=== PATIENT | female | born 1945 | race Caucasian/White ===

== ENCOUNTER 2017-11-01 03:18 | Emergency (ER) | payer OTHER, MEDICARE ==
[2017-11-01] MEDS ORDERED: TRAMADOL HCL 50 MG TABLET PO ONE (03:57)
--- NOTE | 2017-11-01 04:03 | ER Document Report ---
HPI - HPI Pain Level: 3 Notes: Patient is a 72-year-old female with no significant past medical history who presents to the ED complaining of right anterior leg pain from her hip to her knee 1-1/2 days. Patient states that she walks every day, and believes that she may have pulled a muscle a few days ago, but the pain worsened over the last day and a half. Patient states that weightbearing and activation of her quadricep muscles worsen her pain. Patient has not noticed any bruising, redness, or swelling. Patient states that she took Tylenol without any relief of her symptoms. Patient does have associated nausea with the increase in her pain. patient is accompanied by her daughter and her grandson. In her 72 years of living, patient states that this is her first ER visit. Patient states that she has otherwise been healthy and had blood work performed by her primary care provider about a week ago which was unremarkable. Patient states that she has been feeling well aside from her leg. She is eating and drinking without any difficulties. She is urinating normally and having normal bowel movements. Denies any headache, fever, neck pain, URI, sore throat, chest pain , palpitations, syncope, cough, shortness of breath, wheeze, dyspnea, abdominal pain, nausea/vomiting/diarrhea, urinary retention, dysuria, hematuria, back pain , loss of control of bowel or bladder, numbness/tingling, saddle anesthesia, muscle paralysis/weakness, or rash. - ROS Notes: REVIEW OF SYSTEMS: CONSTITUTIONAL : Denies fever, chills, or sweats. Denies recent illness. EENT: Denies eye, ear, throat, or mouth pain or symptoms. Denies nasal or sinus congestion or discharge. Denies throat, tongue, or mouth swelling or difficulty swallowing. CARDIOVASCULAR: Denies chest pain. Denies palpitations or racing or irregular heart beat. Denies ankle edema. RESPIRATORY: Denies cough, cold, or chest congestion. Denies shortness of breath, difficulty breathing, or wheezing. GASTROINTESTINAL: Denies abdominal pain or distention. Denies nausea, vomiting , or diarrhea. Denies blood in vomitus, stools, or per rectum. Denies black, tarry stools. Denies constipation. GENITOURINARY: Denies difficulty urinating, painful urination, burning, frequency, blood in urine, or discharge. MUSCULOSKELETAL: see hpi SKIN: Denies rash, lesions or sores. NEUROLOGICAL: Denies confusion or altered mental status. Denies passing out or loss of consciousness. Denies dizziness or lightheadedness. Denies headache. Denies weakness or paralysis or loss of use of either side. Denies problems with gait or speech. Denies sensory loss, numbness, or tingling. Denies seizures. ALL OTHER SYSTEMS REVIEWED AND NEGATIVE. Dictation was performed using [employer] voice recognition software <ROSA GARCIA - Last Filed: 11/01/17 07:02> Past Medical History - Social History Smoking Status: Never Smoker Chew tobacco use (# tins/day): No Frequency of alcohol use: None Drug Abuse: None Family History: Reviewed & Not Pertinent Patient has suicidal ideation: No Patient has homicidal ideation: No Renal/ Medical History: Denies: Hx Peritoneal Dialysis Skin Medical History: Comment Only Hx MRSA - MRSA 02/25/08 NASAL <ROSA GARCIA - Last Filed: 11/01/17 07:02> Vertical Provider Document - CONSTITUTIONAL Agree With Documented VS: Yes Notes: PHYSICAL EXAMINATION: GENERAL: Well-appearing, well-nourished and in no acute distress. A&Ox4. LUNGS: Breath sounds clear to auscultation bilaterally and equal. No wheezes rales or rhonchi. HEART: Regular rate and rhythm without murmurs, rubs, gallops. ABDOMEN: Soft, nontender, nondistended abdomen. No guarding, no rebound. No masses appreciated. Normal bowel sounds present. No CVA tenderness bilaterally. Femoral pulse 2+ b/l. No pulsatile mass. Musculoskeletal: Rt LE: FROM to passive. LROM to flexion at the hip to active ROM. Strength 5+/5. No obvious erythema, swelling, ecchymosis, or deformity noted. I was able to put her rt hip through ROM w/o tenderness elicited in the hip joint. + tenderness to palp of the anterior rt thigh and to the rt medial knee. Miguelito neg b/l. no calf erythema or swelling. N/V intact distal. Extremities: No cyanosis, clubbing, or edema b/l. Peripheral pulses 2+. Capillary refill less than 3 seconds. NEUROLOGICAL: Normal speech. Normal sensory, motor exams otherwise PSYCH: Normal mood, normal affect. SKIN: Warm, Dry, normal turgor, no rashes or lesions noted. - INFECTION CONTROL TRAVEL OUTSIDE OF THE [place] IN LAST 30 DAYS: No - RESPIRATORY O2 Sat by Pulse Oximetry: 97 <ROSA GARCIA - Last Filed: 11/01/17 07:02> Course - Re-evaluation Re-evalutation: 11/01/17 05:31 Patient is an afebrile, well-hydrated, 72-year-old female who presents the ED with right leg pain focused to the anterior thigh from the hip to the knee. Vitals are currently stable. PE is otherwise unremarkable for any neurovascular compromise, obvious tendon/ligament rupture, obvious fracture/ dislocation, or obvious septic joint. X-ray of the right femur and the right knee were unremarkable for any acute pathology. Pt was given tramadol PO. Upon reevaluation, patient states that she is still unable to bear any weight and is in discomfort as the medicine did not touch her pain. Reviewed with Dr. Lima who recommends further evaluation with venous doppler and MRI. Pt is in agreement. Toradol ordered. We will consider Morphine as our next option for pain. 11/01/17 06:38 Pt has no new concerns or complaints. Pt states that the toradol helped with his pain and has taken the edge off, but there is still some discomfort. 11/01/17 07:02 Care Transferred to Hoa Parada PA-C. If imaging is negative, we can discharge for f/u with PCM/Ortho next week. Return with any worsening/concerning symptoms otherwise. Pt is in agreement. - Vital Signs Vital signs: Temp Pulse Resp BP Pulse Ox 97.8 F 60 18 185/86 H 97 11/01/17 03:27 11/01/17 03:27 11/01/17 03:27 11/01/17 03:27 11/01/17 03:27 <ROSA GARCIA - Last Filed: 11/01/17 07:02> - Re-evaluation Re-evalutation: 11/01/17 11:16 MRI complete without significant findings or concerns for acute pathology Doppler and US pending 11/01/17 13:11 Doppler is negative. Patient states she feels much better. She is refusing crutches or prescription for walker at this time. Will discharge her home with anti-inflammatories and instructions to follow-up with her primary care this week. - Vital Signs Vital signs: Temp Pulse Resp BP Pulse Ox 97.8 F 60 18 185/86 H 97 11/01/17 03:27 11/01/17 03:27 11/01/17 03:27 11/01/17 03:27 11/01/17 07:03 <GHAZALA PARADA - Last Filed: 11/01/17 13:12> Discharge <RADHAROSA - Last Filed: 11/01/17 07:02> <GHAZALA PARADA - Last Filed: 11/01/17 13:12> - Discharge Clinical Impression: Right leg pain Condition: Stable Instructions: Leg Pain Nonspecific ([facility]) Additional Instructions: Rest, Ice, Compression, Elevation Tylenol/ibuprofen as needed Light stretches daily Strength exercises as able Moist heat and massage may help F/u with your PCP in 3-5 days for a recheck Consider consult(s) with Orthopedics/physical therapy for ongoing/worsening symptoms Return to the ED with any worsening symptoms and/or development of fever, headache, chest pain, palpitations, syncope, shortness of breath, trouble breathing, abdominal pain, n/v/d, muscle weakness/paralysis, saddle anesthesia, numbness/tingling, swelling, redness, or other worsening symptoms that are concerning to you. Prescriptions: Naproxen 500 mg PO BID PRN #30 tablet PRN Reason: Forms: Elevated Blood Pressure Referrals: SIVA AMAYA PA [Primary Care Provider] - Follow up in 3-5 days [facility] [Provider Group] - Follow up as needed
--- NOTE | 2017-11-01 05:06 | RADIOLOGY REPORT (SQ) ---
EXAM DESCRIPTION: FEMUR RIGHT (accession [id number]), KNEE RIGHT 4 VIEWS (accession [id number]) CLINICAL HISTORY: rt anterior leg pain COMPARISON: None. FINDINGS: 2 views of the right femur and 4 views of the right knee. No acute fracture or dislocation. Normal osseous mineralization. Mild right hip joint space narrowing. No knee joint effusion identified. Mild narrowing of the patellofemoral compartment. IMPRESSION: 1. No acute fracture or dislocation.
--- NOTE | 2017-11-01 05:06 | RADIOLOGY REPORT (SQ) ---
EXAM DESCRIPTION: FEMUR RIGHT (accession [id number]), KNEE RIGHT 4 VIEWS (accession [id number]) CLINICAL HISTORY: rt anterior leg pain COMPARISON: None. FINDINGS: 2 views of the right femur and 4 views of the right knee. No acute fracture or dislocation. Normal osseous mineralization. Mild right hip joint space narrowing. No knee joint effusion identified. Mild narrowing of the patellofemoral compartment. IMPRESSION: 1. No acute fracture or dislocation.
[2017-11-01] MEDS ORDERED: KETOROLAC TROMETHAMINE INJ/PF 30 MG/1 ML SDV IM ONE (05:25)
[2017-11-01] MEDS ORDERED: ONDANSETRON 4 MG TAB.RAPDIS PO ONE (05:39)
--- NOTE | 2017-11-01 11:35 | RADIOLOGY REPORT (SQ) ---
EXAM DESCRIPTION: MRI RT LOWER EXTREMITY WITHOUT COMPLETED DATE/TIME: 11/01/2017 10:25 am REASON FOR STUDY: rt anterior thigh pain COMPARISON: None. TECHNIQUE: Multiplanar imaging of the right femur/thigh to include T1, T2, and STIR sequences. LIMITATIONS: None. FINDINGS: BONES: Intact. No marrow edema. No cortical disruption. SOFT TISSUES: Intact musculature. No evidence of intramuscular hematoma or other soft tissue mass. Fascial planes intact. No soft tissue abscess or swelling. OTHER: No other significant finding. IMPRESSION: NO SIGNIFICANT FINDING IN THE RIGHT UPPER LEG. TECHNICAL DOCUMENTATION: JOB ID: [id number] [email or web address]- All Rights Reserved
[2017-11-01] MEDS ORDERED: KETOROLAC TROMETHAMINE 10 MG TABLET PO ONE (12:08)
[2017-11-01 13:37] VITALS: BP 188/92
--- NOTE | 2017-11-02 13:38 | XCELERA REPORT ---
[address] [address] Lower Extremity Venous Evaluation Name: CARMEN VENTURA Age: 72 yrs Gender: Female : 1945 Patient Status: Emergency Patient Location: ER Study Date: 11/01/2017 12:16 PM Procedure: Color flow and duplex imaging of the veins of the right lower extremity as well as the left Common Femoral vein. Reason For Study: Rt leg pain Ordering Physician: ROSA GARCIA PA-C Performed By: Vanessa Alicia Right Sided Venous Evaluation Normal vessel filling wall to wall, compression and augmentation as well as Colour flow down to the infrageniculate veins. Left Sided Venous Evaluation The left common femoral vein is fully compressible. Spontaneous and phasic flow is present in the left common femoral vein. Interpretation Summary No duplex evidence of DVT or obstruction in the right lower extremity nor in the left Common Femoral vein. : ROSA GARCIA PA-C > David Spangler
== END 2017-11-01 13:37 | disposition home or self-care (01) ==
LOC: ER 03:18
DX: M79.651 Pain in right thigh (principal); M25.551 Pain in right hip; M25.561 Pain in right knee; R11.0 Nausea; Z86.14 Personal history of Methicillin resistant Staphylococcus aureus infection
CPT/HCPCS: 99284; 93971 ×2; 73718; 73552; 73564; J1885; J3490